=== PATIENT | male | born 1955 | race Caucasian/White ===

== ENCOUNTER 2018-11-09 14:28 | Inpatient (IN) | payer OTHER ==
[2018-11-09 15:17] VITALS: BMI 28.9
--- NOTE | 2018-11-09 17:10 | HP ---
CIWA Score Nausea/Vomitin-Mild Nausea/No Vomiting Muscle Tremors: 4-Moderate,w/Arms Extend Anxiety: 1-Mildly Anxious Agitation: 1-Slight > Activity Paroxysmal Sweats: 1-Minimal Palms Moist Orientation: 0-Oriented Tacttile Disturbances: 0-None Auditory Disturbances: 0-None Visual Disturbances: 0-None Headache: 4-Moderately Severe CIWA-Ar Total Score: 12 - Admission Criteria OASAS Guidelines: Admission for Medically Managed Detox: Requires at least one of the followin. CIWA greater than 12 2. Seizures within the past 24 hours 3. Delirium tremens within the past 24 hours 4. Hallucinations within the past 24 hours 5. Acute intervention needed for co occurring medical disorder 6. Acute intervention needed for co occurring psychiatric disorder 7. Severe withdrawal that cannot be handled at a lower level of care (continued vomiting, continued diarrhea, abnormal vital signs) requiring intravenous medication and/or fluids 8. Patient presents the following: CIWA greater than 12 Admission Criteria Met: Admission criteria met Admission ROS S - [facility] Chief Complaint: here for alcohol detox 63 yo old with no medical problems referred here from [facility] ER- pt was taken there by police after he was found intoxicated and combative. Pt takes no meds. Alcohol- 6 40oz of beer and liquour for a "long time"- since age 19. Was in treatment for 1 year at [facility] in 2010- slowed down with alcohol. But restarted drinking heavily in 2017. no h/o DT's and no h/o seizures DUR- no controlled substances Utox: BZO (from [facility]) and KURT- neg Allergies/Adverse Reactions: Allergies Allergy/AdvReac Type Severity Reaction Status Date / Time No Known Allergies Allergy Verified 11/09/18 17:00 Exam Limitations: No Limitations - Ebola screening Have you traveled outside of the country in the last 21 days: No Have you had contact with anyone from an Ebola affected area: No Have you been sick,other than usual withdrawal symptoms: No - Review of Systems Constitutional: No Symptoms Reported EENT: reports: No Symptoms Reported Respiratory: reports: No Symptoms reported Cardiac: reports: No Symptoms Reported GI: reports: No Symptoms Reported : reports: No Symptoms Reported Musculoskeletal: reports: No Symptoms Reported Integumentary: reports: No Symptoms Reported Neuro: reports: No Symptoms reported Endocrine: reports: No Symptoms Reported Hematology: reports: No Symptoms Reported Psychiatric: reports: No Sypmtoms Reported Other Systems: Reviewed and Negative Patient History - Patient Medical History Hx Asthma: No Hx Chronic Obstructive Pulmonary Disease (COPD): No Hx Cancer: No Hx Cardiac Disorders: No Hx Congestive Heart Failure: No Hx Hypertension: No Hx Hypercholesterolemia: No Hx Pacemaker: No HX Cerebrovascular Accident: No Hx Seizures: No Hx Dementia: No Hx Diabetes: No Hx Gastrointestinal Disorders: No Hx Liver Disease: No Hx Genitourinary Disorders: No Hx Sexually Transmitted Disorders: No Hx Renal Disease (ESRD): No Hx Thyroid Disease: No Hx Human Immunodeficiency Virus (HIV): No Hx Hepatitis C: No Hx Depression: No Hx Suicide Attempt: No Hx Bipolar Disorder: No Hx Schizophrenia: No - Patient Surgical History Past Surgical History: Yes Hx Orthopedic Surgery: Yes (Sx both kness R knee 2014 L 2015) Other Surgical History: inguinal hernia repair and umbilical hernia repair - PPD History Previous Implant?: Yes Documented Results: Negative w/o proof Implanted On Prior [facility] Admission?: No - Smoking Cessation Smoking history: Current every day smoker Have you smoked in the past 12 months: Yes Aproximately how many cigarettes per day: 40 Hx Chewing Tobacco Use: No Initiated information on smoking cessation: Yes 'Breaking Loose' booklet given: 11/09/18 - Substance & Tx. History Hx Alcohol Use: Yes Hx Substance Use: Yes Substance Use Type: None, Alcohol Hx Substance Use Treatment: No (2010 at [facility]) - Substances Abused Alcohol Route: Oral Frequency: Daily Amount used: 4-5 40 oz beers Age of first use: 19 Date of Last Use: 11/08/18 Family Disease History - Family Disease History Family Disease History: Other: Father (HTN, DM, alcohol) Admission Physical Exam S - Vital Signs Vital Signs: Vital Signs - 24 hr 11/09/18 15:16 Temperature 97.7 F Pulse Rate 82 Respiratory 20 Rate Blood Pressure 132/86 - Physical General Appearance: Yes: Within Normal Limits HEENTM: Yes: Within Normal Limits Respiratory: Yes: Within Normal Limits Neck: Yes: Within Normal Limits Cardiology: Yes: Within Normal Limits, Regular Rhythm, Regular Rate Abdominal: Yes: Within Normal Limits, Protuberent Genitourinary: Yes: Within Normal Limits Back: Yes: Within Normal Limits Musculoskeletal: Yes: Within Normal Limits Extremities: Yes: Within Normal Limits, Other (old surgical scar of both knees) Neurological: Yes: Within Normal Limits Integumentary: Yes: Within Normal Limits Lymphatic: Yes: Within Normal Limits BHS Breath Alcohol Content Breath Alcohol Content: 0 Urine Drug Screen - Results Drug Screen Negative: No Urine Drug Screen Results: BZO-Benzodiazepines
[2018-11-09] MEDS ORDERED: MENTHOL/PHENOL 1 EACH UD MM PRN (17:39)
[2018-11-09] MEDS ORDERED: LOPERAMIDE HCL 2 MG CAPSULE PO PRN (17:39)
[2018-11-09] MEDS ORDERED: MAGNESIUM CITRATE 300 ML BOTTLE PO PRN (17:39)
[2018-11-09] MEDS ORDERED: ACETAMINOPHEN 325 MG TABLET (FP) PO PRN (17:39)
[2018-11-09] MEDS ORDERED: hydrOXYzine PAMOATE 25 MG CAPSULE (FP) PO PRN (17:39)
[2018-11-09] MEDS ORDERED: MAGNESIUM HYDROX 2400MG/30ML ORAL SUSPENSION 30 ML CUP PO PRN (17:39)
[2018-11-09] MEDS ORDERED: NICOTINE POLACRILEX 4 MG GUM BC PRN (17:39)
[2018-11-09] MEDS ORDERED: P-EPHED 60MG/TRIPROLIDI 2.5MG TABLET PO PRN (17:39)
[2018-11-09] MEDS ORDERED: MAG HYDROX/AL HYDROX/SIMETH 30 ML UNIT-DOSE CUP PO PRN (17:39)
[2018-11-09] MEDS ORDERED: guaiFENesin/D-METHORPHAN HB 10 ML UNIT-DOSE CUPS PO PRN (17:39)
[2018-11-09] MEDS ORDERED: chlordiazePOXIDE HCL 25 MG CAPSULE PO PRN (17:43)
[2018-11-09] MEDS ORDERED: chlordiazePOXIDE HCL 25 MG CAPSULE PO ONE (18:30)
[2018-11-09] MEDS ORDERED: MELATONIN 5 MG TABLETS PO PRN (22:00)
[2018-11-09] MEDS: THIAMINE HCL 100 MG TABLET (FP) PO SCH (22:07)
[2018-11-09] MEDS: chlordiazePOXIDE HCL 25 MG CAPSULE PO SCH (22:08)
[2018-11-10] MEDS: chlordiazePOXIDE HCL 25 MG CAPSULE PO SCH ×4 (05:17→22:19)
[2018-11-10] MEDS: PRENATAL VITAMINS W/ FOLIC ACID TABLET (FP) PO SCH (10:40)
[2018-11-10 10:44] LABS: WHITE BLOOD COUNT 5.5 K/mm3 (4.0-10.0)
[2018-11-10 10:45] LABS: HEMATOCRIT 44.7 % (35.4-49); HEMOGLOBIN 13.9 GM/dL (11.7-16.9); MCH 28.5 pg (25.7-33.7); MCHC 31.1 g/dl (32.0-35.9); MEAN CELL VOLUME 91.6 fl (80-96); MEAN PLT VOLUME 11.7 fl (7.5-11.1); PLATELET COUNT 79 K/MM3 (134-434); RBC 4.89 M/mm3 (4.00-5.60); RDW 13.3 % (11.9-15.9)
[2018-11-10 11:10] LABS: ALBUMIN 3.6 g/dl (3.4-5.0); ALK PHOS 113 U/L (45-117); ANION GAP 9 MMOL/L (8-16); BILIRUBIN,TOTAL 0.8 mg/dL (0.2-1); BLOOD UREA NITROGEN 16 mg/dL (7-18); CALCIUM 8.6 mg/dL (8.5-10.1); CHLORIDE 105 mmol/L (98-107); CO2 26 mmol/L (21-32); CREATININE 0.7 mg/dL (0.55-1.3); GLUCOSE,RANDOM 83 mg/dL (74-106); POTASSIUM 4.2 mmol/L (3.5-5.1); SGOT/AST 24 U/L (15-37); SGPT/ALT 29 U/L (13-61); SODIUM 140 mmol/L (136-145); TOT PROT 6.6 g/dl (6.4-8.2)
[2018-11-10 11:35] LABS: URINE APPEARANCE SLCLOUDY; URINE BILIRUBIN NEGATIVE (<2.0 mg/dL); URINE COLOR YELLOW; URINE GLUCOSE (UA) NEGATIVE (NEGATIVE); URINE KETONE NEGATIVE (NEGATIVE); URINE LEUK ESTERASE 1+ (NEGATIVE); URINE NITRITE NEGATIVE (NEGATIVE); URINE PROTEIN NEGATIVE (NEGATIVE); URINE UROBILINOGEN NEGATIVE mg/dL (0.2-1.0)
--- NOTE | 2018-11-10 11:57 | PN ---
S CIWA - CIWA Score Nausea/Vomitin-No Nausea/No Vomiting Muscle Tremors: 4-Moderate,w/Arms Extend Anxiety: 3 Agitation: 3 Paroxysmal Sweats: 2 Orientation: 0-Oriented Tacttile Disturbances: 0-None Auditory Disturbances: 0-None Visual Disturbances: 0-None Headache: 0-None Present CIWA-Ar Total Score: 12 B[facility] Progress Note (SOAP) Subjective: agitation sweats shakes interrupted sleep callous under both feet Objective: 11/10/18 11:56 Vital Signs Temperature 96.6 F L 11/10/18 09:32 Pulse Rate 92 H 11/10/18 09:32 Respiratory Rate 18 11/10/18 09:32 Blood Pressure 116/91 11/10/18 09:32 O2 Sat by Pulse Oximetry (%) Laboratory Tests 11/10/18 11/10/18 11/10/18 07:00 07:00 07:00 WBC 5.5 Corrected WBC (auto) 5.50 RBC 4.89 Hgb 13.9 Hct 44.7 MCV 91.6 MCH 28.5 MCHC 31.1 L RDW 13.3 Plt Count 79 L MPV 11.7 H Platelet Comment Rare giant plts Sodium 140 Potassium 4.2 Chloride 105 Carbon Dioxide 26 Anion Gap 9 BUN 16 Creatinine 0.7 Creat Clearance w eGFR > 60 Random Glucose 83 Calcium 8.6 Total Bilirubin 0.8 AST 24 ALT 29 Alkaline Phosphatase 113 Total Protein 6.6 Albumin 3.6 Urine Color Urine Appearance Urine pH Ur Specific [place] Urine Protein Urine Glucose (UA) Urine Ketones Urine Blood Urine Nitrite Urine Bilirubin Urine Urobilinogen Ur Leukocyte Esterase RPR Titer HIV 1&2 Antibody Screen Negative HIV P24 Antigen Negative 11/10/18 11/10/18 07:00 08:00 WBC Corrected WBC (auto) RBC Hgb Hct MCV MCH MCHC RDW Plt Count MPV Platelet Comment Sodium Potassium Chloride Carbon Dioxide Anion Gap BUN Creatinine Creat Clearance w eGFR Random Glucose Calcium Total Bilirubin AST ALT Alkaline Phosphatase Total Protein Albumin Urine Color Yellow Urine Appearance Slcloudy Urine pH 5.0 Ur Specific [place] 1.019 Urine Protein Negative Urine Glucose (UA) Negative Urine Ketones Negative Urine Blood Negative Urine Nitrite Negative Urine Bilirubin Negative Urine Urobilinogen Negative Ur Leukocyte Esterase 1+ H RPR Titer Nonreactive HIV 1&2 Antibody Screen HIV P24 Antigen aaox3 ambulating no acute distress Assessment: 11/10/18 11:56 withdrawal sx Plan: continue detox increase fluids tinactin cream to feet provide gauze for cushion
[2018-11-10 11:58] LABS: CALCIUM OXALATE CRYSTALS FEW /hpf (NONE SEEN); EPI CELLS RARE /HPF (FEW); URINE BACTERIA MANY /hpf (NONE SEEN); URINE MUCUS RARE
[2018-11-10] MEDS ORDERED: FLU VACCINE QUAD 60 MCG/0.5 ML (MDV 18-19) IM ONE (12:55)
[2018-11-10] MEDS: TOLNAFTATE 1% CREAM 15 GM TUBE TP SCH ×2 (14:05→22:19)
[2018-11-10] MEDS: IBUPROFEN 400 MG TABLET (FP) PO PRN (20:30)
[2018-11-10] MEDS: THIAMINE HCL 100 MG TABLET (FP) PO SCH (22:18)
[2018-11-11] MEDS ORDERED: chlordiazePOXIDE 5 MG CAPSULE PO SCH (05:56)
[2018-11-11] MEDS: chlordiazePOXIDE 5 MG CAPSULE PO SCH ×4 (06:09→22:18)
[2018-11-11] MEDS: chlordiazePOXIDE HCL 25 MG CAPSULE PO SCH (06:18)
[2018-11-11] MEDS: TOLNAFTATE 1% CREAM 15 GM TUBE TP SCH ×2 (10:28→23:19)
[2018-11-11] MEDS: PRENATAL VITAMINS W/ FOLIC ACID TABLET (FP) PO SCH (10:28)
--- NOTE | 2018-11-11 10:43 | PN ---
[facility] CIWA - CIWA Score Nausea/Vomitin-No Nausea/No Vomiting Muscle Tremors: 3 Anxiety: 2 Agitation: 3 Paroxysmal Sweats: 2 Orientation: 0-Oriented Tacttile Disturbances: 0-None Auditory Disturbances: 0-None Visual Disturbances: 0-None Headache: 0-None Present CIWA-Ar Total Score: 10 S Progress Note (SOAP) Subjective: constipation sweats anxiety Objective: 11/11/18 10:42 Vital Signs Temperature 96.3 F L 11/11/18 09:39 Pulse Rate 88 11/11/18 09:39 Respiratory Rate 16 11/11/18 09:39 Blood Pressure 118/84 11/11/18 09:39 O2 Sat by Pulse Oximetry (%) Laboratory Tests 11/10/18 11/10/18 11/10/18 07:00 07:00 07:00 WBC 5.5 Corrected WBC (auto) 5.50 RBC 4.89 Hgb 13.9 Hct 44.7 MCV 91.6 MCH 28.5 MCHC 31.1 L RDW 13.3 Plt Count 79 L MPV 11.7 H Platelet Comment Rare giant plts Sodium 140 Potassium 4.2 Chloride 105 Carbon Dioxide 26 Anion Gap 9 BUN 16 Creatinine 0.7 Creat Clearance w eGFR > 60 Random Glucose 83 Calcium 8.6 Total Bilirubin 0.8 AST 24 ALT 29 Alkaline Phosphatase 113 Total Protein 6.6 Albumin 3.6 Urine Color Urine Appearance Urine pH Ur Specific [place] Urine Protein Urine Glucose (UA) Urine Ketones Urine Blood Urine Nitrite Urine Bilirubin Urine Urobilinogen Ur Leukocyte Esterase Urine WBC (Auto) Urine RBC (Auto) Ur Epithelial Cells Calcium Oxalate Crystal Urine Bacteria Urine Mucus RPR Titer HIV 1&2 Antibody Screen Negative HIV P24 Antigen Negative 11/10/18 11/10/18 07:00 08:00 WBC Corrected WBC (auto) RBC Hgb Hct MCV MCH MCHC RDW Plt Count MPV Platelet Comment Sodium Potassium Chloride Carbon Dioxide Anion Gap BUN Creatinine Creat Clearance w eGFR Random Glucose Calcium Total Bilirubin AST ALT Alkaline Phosphatase Total Protein Albumin Urine Color Yellow Urine Appearance Slcloudy Urine pH 5.0 Ur Specific [place] 1.019 Urine Protein Negative Urine Glucose (UA) Negative Urine Ketones Negative Urine Blood Negative Urine Nitrite Negative Urine Bilirubin Negative Urine Urobilinogen Negative Ur Leukocyte Esterase 1+ H Urine WBC (Auto) 21 Urine RBC (Auto) 3 Ur Epithelial Cells Rare Calcium Oxalate Crystal Few Urine Bacteria Many Urine Mucus Rare RPR Titer Nonreactive HIV 1&2 Antibody Screen HIV P24 Antigen aaox3 repeat u/a ambulating no acute distress Assessment: 11/11/18 10:42 withdrawal sx Plan: continue detox increase fluids MOM/mylanta prn repeat u/a
[2018-11-11] MEDS: THIAMINE HCL 100 MG TABLET (FP) PO SCH (22:18)
[2018-11-11] MEDS: IBUPROFEN 400 MG TABLET (FP) PO PRN (22:20)
[2018-11-12] MEDS: chlordiazePOXIDE 5 MG CAPSULE PO SCH ×4 (05:42→23:01)
[2018-11-12] MEDS: PRENATAL VITAMINS W/ FOLIC ACID TABLET (FP) PO SCH (10:10)
[2018-11-12] MEDS: TOLNAFTATE 1% CREAM 15 GM TUBE TP SCH ×2 (10:10→23:02)
--- NOTE | 2018-11-12 14:38 | PN ---
[facility] Progress Note (SOAP) Subjective: Pt states he feels like his arms are achy and hands hurt- says when he was arrested by the police the handcuffs were on too tight. xays done yesterday O: [facility] FROM both arms/wrists Vital Signs - 24 hr 11/11/18 11/11/18 11/12/18 17:43 22:12 00:30 Temperature 96.8 F L 97.9 F Pulse Rate 82 85 Respiratory 18 20 18 Rate Blood Pressure 124/85 125/80 11/12/18 11/12/18 11/12/18 03:30 06:51 09:30 Temperature 97.3 F L 97.5 F L Pulse Rate 66 75 Respiratory 18 16 16 Rate Blood Pressure 117/75 105/69 11/12/18 13:43 Temperature 97.5 F L Pulse Rate 92 H Respiratory 18 Rate Blood Pressure 113/77 no swelling/redness noted, no open cuts or wounds noted Laboratory Tests 11/10/18 11/10/18 11/10/18 07:00 07:00 07:00 WBC 5.5 Corrected WBC (auto) 5.50 RBC 4.89 Hgb 13.9 Hct 44.7 MCV 91.6 MCH 28.5 MCHC 31.1 L RDW 13.3 Plt Count 79 L MPV 11.7 H Platelet Comment Rare giant plts Sodium 140 Potassium 4.2 Chloride 105 Carbon Dioxide 26 Anion Gap 9 BUN 16 Creatinine 0.7 Creat Clearance w eGFR > 60 Random Glucose 83 Calcium 8.6 Total Bilirubin 0.8 AST 24 ALT 29 Alkaline Phosphatase 113 Total Protein 6.6 Albumin 3.6 Urine Color Urine Appearance Urine pH Ur Specific [place] Urine Protein Urine Glucose (UA) Urine Ketones Urine Blood Urine Nitrite Urine Bilirubin Urine Urobilinogen Ur Leukocyte Esterase Urine WBC (Auto) Urine RBC (Auto) Ur Epithelial Cells Calcium Oxalate Crystal Urine Bacteria Urine Mucus RPR Titer HIV 1&2 Antibody Screen Negative HIV P24 Antigen Negative 11/10/18 11/10/18 07:00 08:00 WBC Corrected WBC (auto) RBC Hgb Hct MCV MCH MCHC RDW Plt Count MPV Platelet Comment Sodium Potassium Chloride Carbon Dioxide Anion Gap BUN Creatinine Creat Clearance w eGFR Random Glucose Calcium Total Bilirubin AST ALT Alkaline Phosphatase Total Protein Albumin Urine Color Yellow Urine Appearance Slcloudy Urine pH 5.0 Ur Specific [place] 1.019 Urine Protein Negative Urine Glucose (UA) Negative Urine Ketones Negative Urine Blood Negative Urine Nitrite Negative Urine Bilirubin Negative Urine Urobilinogen Negative Ur Leukocyte Esterase 1+ H Urine WBC (Auto) 21 Urine RBC (Auto) 3 Ur Epithelial Cells Rare Calcium Oxalate Crystal Few Urine Bacteria Many Urine Mucus Rare RPR Titer Nonreactive HIV 1&2 Antibody Screen HIV P24 Antigen a/p: continue alcohol detox s/p soft tissue injury- xrays pending, symptomatic treatment with tylenol/motrin /BenGay final xray results pending
[2018-11-12] MEDS ORDERED: METHYL SALICYLATE/MENTHOL OINT 30 GM TUBE TP PRN (14:40)
[2018-11-12] MEDS: IBUPROFEN 400 MG TABLET (FP) PO PRN (17:39)
[2018-11-12] MEDS ORDERED: METHYL SALICYLATE/MENTHOL OINT 30 GM TUBE TP SCH (22:00)
[2018-11-12] MEDS: THIAMINE HCL 100 MG TABLET (FP) PO SCH (23:01)
[2018-11-13] MEDS: chlordiazePOXIDE 5 MG CAPSULE PO SCH (06:11)
[2018-11-13 09:52] VITALS: BP 127/82; PULSE 89; TEMP 97.5
[2018-11-13] MEDS: TOLNAFTATE 1% CREAM 15 GM TUBE TP SCH (10:29)
[2018-11-13] MEDS: PRENATAL VITAMINS W/ FOLIC ACID TABLET (FP) PO SCH (10:29)
--- NOTE | 2018-11-13 14:36 | PN ---
[facility] Progress Note Note: Pt for completed detox and for discharge. 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
--- NOTE | 2018-11-13 14:43 | DS ---
[facility] Discharge Summary Admission Date: 11/09/18 Discharge Date: 11/13/18 - History Additional Comments: pt discharged home in stable condition. Pls see progress notes - Physical Exam Results Vital Signs: Vital Signs Temperature 97.5 F L 11/13/18 09:51 Pulse Rate 89 11/13/18 09:51 Respiratory Rate 18 11/13/18 09:51 Blood Pressure 127/82 11/13/18 09:51 O2 Sat by Pulse Oximetry (%) Pertinent Admission Physical Exam Findings: withdrawal sx - Treatment Hospital Course: Detox Protocol Followed, Detoxed Safely, Responded well, Discharged Condition Good, Rehab Referral Accepted Patient has Accepted a Rehab Referral to: Out patient at [facility] Home - Medication Discharge Medications: Ambulatory Orders NK [No Known Home Medication] 11/09/18 - AMA Did Patient Leave Against Medical Advice: No
== END 2018-11-13 10:07 | disposition home or self-care (01) | DRG 897 ==
LOC: YASAS 14:28 → Y6N 18:06
PROC: HZ2ZZZZ Detoxification Services for Substance Abuse Treatment (ICD-10-PCS; principal; 2018-11-09)
DX: F10.230 Alcohol dependence with withdrawal, uncomplicated (principal); L84 Corns and callosities
CPT/HCPCS: 36415; 73030-TC-RT-FY; 73060-TC-RT-FY; 73110-TC-RT-FY; 73130-TC-RT-FY; 80053; 81003; 81015; 85027; 86593; 87389; 90688; G0008